=== PATIENT | male | born 1950 | race Caucasian/White ===

== ENCOUNTER 2020-08-29 11:16 | Outpatient (CLI) | payer OTHER ==
[2020-08-29 12:42] LABS: #Basophils 0.1 10x3/uL (0.0-0.2); #Eosinphils 0.1 10x3/uL (0.0-0.5); #Monocytes 0.7 10x3/uL (0.0-1.1); #Neutrophils 6.3 10x3/uL (1.5-8.4); %Basophils 0.6 % (0.0-2.0); %Neutrophils 76.9 % (40.0-75.0); Mean Corpuscular HGB CONC 33.2 g/dL (32.0-36.0); Mean Corpuscular Hemoglobin 29.4 pg (27.0-33.0); Mean Corpuscular Volume 88.5 fl (81.2-95.1); Mean Platelet Volume 8.9 fl (7.4-10.4); Platelet Count 243 10x3/uL (150-450); RBC Distribution Width 14.5 % (11.5-14.5); Red Blood Cell (RBC) Count 5.11 10x6/uL (4.32-5.72); White Blood Cell (WBC) Count 8.2 10x3/uL (3.5-10.5)
[2020-08-29 13:00] LABS: ALT (SGPT) 25 U/L (8-55); AST (SGOT) 22 U/L (5-34); Alkaline Phosphatase 65 U/L (40-110); Anion Gap 16 mmol/L (10-20); BUN (Urea Nitrogen) 21 mg/dL (8.4-25.7); Bilirubin, Total 0.8 mg/dL (0.2-1.2); Calc. Creatinine Clearance 0 mL/min (70-130); Calcium 10.1 mg/dL (7.8-10.44); Carbon Dioxide 26 mmol/L (23-31); Chloride 105 mmol/L (98-107); Globulin 2.9 g/dL (2.4-3.5); Glucose 90 mg/dL (83-110); Potassium 4.7 mmol/L (3.5-5.1); Protein, Total 6.9 g/dL (5.8-8.1); Sodium 142 mmol/L (136-145)
[2020-08-29 17:55] LABS: SARS-CoV-2 PCR by NAA Not Detected (NotDetected)
== END 2020-08-29 11:17 | disposition home or self-care (01) ==
LOC: LABBT 11:16
PROVIDERS: ATTEND Surgery
DX: Z01.818 Encounter for other preprocedural examination (principal); C83.10 Mantle cell lymphoma, unspecified site; Z20.822 Contact with and (suspected) exposure to COVID-19
CPT/HCPCS: 80053; 85025; 87635; U0003; U0005

== ENCOUNTER 2020-08-31 06:06 | Day surgery (SDC) | payer MEDICARE ==
[2020-08-30 10:19] VITALS: BMI 29.0
[2020-08-31] MEDS ORDERED: Fentanyl 100 MCG/2 ML VIAL ONE (07:05)
[2020-08-31] MEDS ORDERED: Propofol 500 MG/50 ML VIAL ONE (07:05)
[2020-08-31] MEDS ORDERED: Midazolam HCl 2 mg/2 ml Vial ONE (07:05)
[2020-08-31] MEDS ORDERED: Bupivacaine 0.25% HCL 30 ML VIAL ONE (07:34)
[2020-08-31] MEDS ORDERED: Lidocaine 1% w/Epinephrine 1:100K 20 ML VIAL ONE (07:34)
[2020-08-31] MEDS ORDERED: Ondansetron PF 4 MG/2 ML Vial ONE (07:37)
[2020-08-31] MEDS ORDERED: Lidocaine 1% PF 5 ML VIAL ONE (07:37)
== END 2020-08-31 08:58 | disposition home or self-care (01) ==
LOC: SDC 06:06
PROVIDERS: ATTEND Surgery
PROC: 0JH60WZ Insertion of Totally Implantable Vascular Access Device into Chest Subcutaneous Tissue and Fascia, Open Approach (ICD-10-PCS; principal; 2020-08-31)
PROC: 02HV33Z Insertion of Infusion Device into Superior Vena Cava, Percutaneous Approach (ICD-10-PCS; 2020-08-31)
DX: C83.10 Mantle cell lymphoma, unspecified site (principal); I10 Essential (primary) hypertension
CPT/HCPCS: 71045; 80053; 82248; 83615; 84100; 84550; J0690; J1642; J2250; J2405; J2704; J3010; S0020

== ENCOUNTER 2021-02-09 10:01 | Outpatient (CLI) | payer MEDICARE | END 2021-02-09 10:02 | disposition home or self-care (01) | LOC: PET 10:01 | PROVIDERS: ATTEND Internal Medicine Hematology & Oncology | DX: C83.11 Mantle cell lymphoma, lymph nodes of head, face, and neck (principal) | CPT/HCPCS: 78815; A9552 ==

== ENCOUNTER 2022-03-26 08:45 | Outpatient (CLI) | payer MEDICARE ==
[2022-03-26] MEDS ORDERED: Iopamidol-370 76% 500 ML 1 ML ONE (15:57)
== END 2022-03-26 08:46 | disposition home or self-care (01) ==
LOC: CT 08:45
PROVIDERS: ATTEND Internal Medicine Hematology & Oncology
DX: C83.11 Mantle cell lymphoma, lymph nodes of head, face, and neck (principal); K40.90 Unilateral inguinal hernia, without obstruction or gangrene, not specified as recurrent; N28.89 Other specified disorders of kidney and ureter
CPT/HCPCS: 71260; 74177; Q9967

== ENCOUNTER 2023-04-28 08:59 | Outpatient (CLI) | payer MEDICARE ==
[2023-04-28] MEDS ORDERED: Iopamidol 370 76% 100 ML VIAL ONE (13:30)
== END 2023-04-28 09:00 | disposition home or self-care (01) ==
LOC: CT 08:59
PROVIDERS: ATTEND Internal Medicine Hematology & Oncology
DX: C83.11 Mantle cell lymphoma, lymph nodes of head, face, and neck (principal); J98.11 Atelectasis; J84.10 Pulmonary fibrosis, unspecified; K40.90 Unilateral inguinal hernia, without obstruction or gangrene, not specified as recurrent; K44.9 Diaphragmatic hernia without obstruction or gangrene; N28.89 Other specified disorders of kidney and ureter; N40.0 Benign prostatic hyperplasia without lower urinary tract symptoms; E27.9 Disorder of adrenal gland, unspecified
CPT/HCPCS: 71260; 74177

== ENCOUNTER 2023-10-22 08:43 | Outpatient (CLI) | payer MEDICARE | END 2023-10-22 08:44 | disposition home or self-care (01) | LOC: CT 08:43 | PROVIDERS: ATTEND Internal Medicine Hematology & Oncology | DX: C83.10 Mantle cell lymphoma, unspecified site (principal); K40.20 Bilateral inguinal hernia, without obstruction or gangrene, not specified as recurrent; J98.11 Atelectasis; E27.8 Other specified disorders of adrenal gland; I77.819 Aortic ectasia, unspecified site; M51.34 Other intervertebral disc degeneration, thoracic region; M51.36 Other intervertebral disc degeneration, lumbar region; M51.37 Other intervertebral disc degeneration, lumbosacral region | CPT/HCPCS: 71260; 74177; 82565 ==